=== PATIENT | male | born 1960 | race Caucasian/White ===

== ENCOUNTER 2016-12-24 11:48 | Inpatient (IN) | payer OTHER, BC ==
[~2016-12-24] VITALS: Ht 177.8 cm; Wt 106.2 kg
--- NOTE | ~2016-12-24 | DS ---
ADMIT: 12/24/2016 RM/LOC: 415 [facility] MR#: [id number] [address] [address] SERENA CHAU [address] [place] [address] Discharge Summary SEX: M AGE: 56 : 1960 ADMISSION DATE: 12/24/2016 DISCHARGE DATE: 12/26/2016 REASON FOR ADMISSION: 1. Fall. 2. Right nondisplaced distal radius fracture. 3. Left comminuted distal radius fracture. 4. Diplopia. 5. Right lateral orbital fracture. 6. Right zygoma fracture. 7. Right-sided frontotemporal fracture. 8. Subarachnoid hemorrhage. 9. Traumatic brain injury. CONSULTS: 1. Dr. Kumari with Family Practice. 2. Dr. Morelos with Orthopedics. 3. Dr. Kan with ENT. HOSPITAL COURSE: Mr. Chau is a very pleasant 56-year-old gentleman whom was at work on a ladder working on wiring. He does not remember what happened, but fell off the ladder from about 6 feet up. He awoke in the ER and is amnestic to the events. A CT scan of his head and orbit was obtained and revealed a right-sided frontotemporal fracture with some traumatic subarachnoid hemorrhage. He had some hearing loss on the right and some double vision. A CT of the cervical spine was negative for any acute processes. X-rays of his shoulder and bilateral wrists were obtained and revealed no acute processes of his shoulder and comminuted left distal radial fracture as well as a nondisplaced right distal radius fracture. He was admitted to the med/surg floor for monitoring and care. Dr. Kumari with Family Practice was consulted for co-management of his comorbidities. Dr. Morelos with orthopedics was consulted for his bilateral radial fractures. Dr. Kan was consulted for his facial fracture, diplopia and hearing loss. Speech therapy was consulted for neurocognitive evaluation and treatment with his traumatic brain injury. Hospital day #2, he continued to have some diplopia. His vital signs were stable. He was awake and alert and oriented x4. He was moving all extremities x4. He continued to work with PT, OT and ST. Hospital day #3, he was awake and alert. He was afebrile. His vital signs were stable. He was moving all extremities x4. His right wrist was in a brace and his left arm splint was intact. He did complain of some numbness to his fingers. His left hand was edematous. He reported his double vision was better in the right eye. He did have periorbital edema that was improving to his right eye. The decreased hearing to his right ear remained unchanged. He was ambulating, urinating and defecating per his norm and was requesting discharge home. DISCHARGE CONDITION: Good. DISCHARGE MEDICATIONS: ADMIT: 12/24/2016 RM/LOC: 415 [facility] MR#: [id number] [address] [place] [id number] SERENA CHAU [address] [place] [address] Discharge Summary SEX: M AGE: 56 : 1960 1. Colace 100 mg p.o. b.i.d. 2. Milk of magnesia 10 mL p.o. daily. 3. Senokot one tab p.o. b.i.d. 4. Therapeutic multivitamin daily. 5. Prevacid 30 mg daily. 6. Dulcolax suppository 10 mg rectally p.r.n. 7. Hydrocodone 5/325, 1-2 p.o. q.4-6 hours p.r.n. 8. Maalox 30 mL p.o. q.6 hours p.r.n. 9. Phenergan 12.5 mg p.o. q.6 hours p.r.n. 10.Surfak 240 mg p.o. b.i.d. p.r.n. 11.Tylenol 650 mg p.o. q.4 hours p.r.n. 12.Zyrtec 10 mg p.o. daily p.r.n. DISCHARGE INSTRUCTIONS: (Per Dr. Correa) He can have a regular diet. He should utilize fall precautions. He will call with any questions or concerns including neurological worsening, signs or symptoms of infection, or any other issues. FOLLOWUP: He will follow up with Dr. Correa in clinic in 1 month. He will follow up with ortho in clinic next week. DISPOSITION: He was discharged home. Total [id number] time for the discharge planning and care coordination was 30 minutes. Marlena Santillan APRN / Jonny Correa MD / vdg JOB #: [id number] CC: Pranay Mooney MD, Attending Physician Pranay Mooney MD, Family Physician
[2016-12-27] MEDS ORDERED: ZYRTEC DPS10 MG PO (19:53)
[2016-12-27] MEDS ORDERED: THERAPEUTIC MUL1 TAB PO (19:53)
[2016-12-27] MEDS ORDERED: COLACE-DPS100 MG PO (19:53)
[2016-12-27] MEDS ORDERED: PREVACID30 MG PO (19:54)
[2016-12-27] MEDS ORDERED: NORCO 5-325 TA1 EACH PO (19:54)
[2016-12-27] MEDS ORDERED: DULCOLAX-DPS10 MG PR (19:54)
[2016-12-27] MEDS ORDERED: MILK OF MAGNESI10 ML PO (19:54)
[2016-12-27] MEDS ORDERED: SENOKOT S1 TAB PO (19:54)
[2016-12-27] MEDS ORDERED: MAALOX DPS30 ML PO (19:55)
[2016-12-27] MEDS ORDERED: PHENERGAN DPS25 MG PO (19:55)
[2016-12-27] MEDS ORDERED: TYLENOL DPS325 MG PO (19:55)
--- NOTE | 2016-12-31 09:33 | CO ---
ADMIT: 12/24/2016 RM/LOC: 415 [facility] MR#: [id number] [address] [address] SERENA CHAU [address] [place] [address] Consultation SEX: M AGE: 56 : 1960 DATE OF CONSULTATION: 12/25/2016 ATTENDING PHYSICIAN: Pranay Mooney MD CONSULTING PHYSICIAN: Wesly Kan MD HISTORY OF PRESENT ILLNESS: Mr. Chau is a 56-year-old, sustained an injury when falling from a ladder. I was consulted concerning double vision. CT scanning of the facial bones shows fractures involving the lateral orbit of the right side and the zygoma. There is very mild (1 mm) displacement of a fracture along the lateral orbital wall. There is no displacement of the zygomatic fracture. There is no evidence of hematoma post-septal and no proptosis. There is blood within the sphenoid and posterior ethmoid sinuses, but no other facial or sinus fractures identified. PHYSICAL EXAMINATION: GENERAL: Shows him to be awake, alert, sitting in a chair. EYES: His vision from the right eye is intact. Movement of the right eye is limited, but appears intact. He has double vision on straight ahead gaze. There is periorbital edema and ecchymosis including the lateral, supraorbital, and infraorbital tissues. There was no tension on the globe. IMPRESSION: 1. Fracture of right lateral orbital wall. 2. Fracture of right zygoma, nondisplaced. 3. Diplopia. RECOMMENDATION: The fracture fragments appear in good alignment and at this time, did not require surgical repair. The diplopia is most likely secondary to soft tissue edema surrounding the fracture sites including the lateral rectus muscle region. Recommend may use ice pack to right periorbital region for comfort. We will plan follow-up examination in 10 to 14 days allowing ecchymosis and edema to subside. I anticipate this will allow resolution of diplopia. Wesly Kan MD/ yasmeen JOB #: [id number] CC: Pranay Mooney MD, Attending Physician Pranay Mooney MD, Family Physician
--- NOTE | 2016-12-31 14:12 | CO ---
ADMIT: 12/24/2016 RM/LOC: 415 [facility] MR#: [id number] [address] [address] SERENA CHAU [address] [place] [address] Consultation SEX: M AGE: 56 : 1960 DATE OF CONSULTATION: 12/24/2016 ATTENDING PHYSICIAN: Pranay Mooney MD CONSULTING PHYSICIAN: Min Morelos MD SUBJECTIVE: The patient is a 56-year-old white male who was on a ladder today, fell off a ladder, was seen in the ER. Apparently, he had a skull fracture and concussion. He also had complaints of bilateral wrist pain. PHYSICAL EXAMINATION: Shows the left wrist is well-padded, volar fiberglass splint secured with an Rick wrap. He is able to wiggle his fingers. Neurovascularly, he appears to be intact. Pain over the distal radius. Has no complaints of elbow, arm, or clavicle pain. Right wrist is in a Velcro cock-up wrist splint. Again, the same thing. He is neurovascularly intact. He has good capillary refill and kind of sense no pain over the elbow or humerus, has a little posterior shoulder pain. He can do leg lifts bilaterally, flex and extend his knees and ankles. No pain of the bilateral lower extremities or the pelvis. IMAGING: X-rays of the right wrist show a nondisplaced distal radius fracture. X-rays of the left wrist show a comminuted articular distal radius fracture pre and post reduction. Post reduction x-rays in the splint show the patient has better alignment, but it still has dorsal angulation. X-rays of the right humerus show an old humeral fracture that was status post bone grafting per the patient, this is well healed. No evidence of malignancies. ASSESSMENT AND PLAN: Bilateral wrist fractures. At this point in time, we will keep the patient in a cock-up wrist splint on the right and follow that with serial x-rays to make sure it maintained its good position. As far as his left wrist is concerned, next week when the swelling goes down, we may have to plan open reduction and internal fixation versus closed reduction and pinning. We will have him ice and elevate both wrists at night. As far as his shoulder is concerned, there were no fractures down the line, after his wrists are healed, we may have to look into that with MRI scans if he continues to have any pain. Min Morelos MD/ yasmeen JOB #: [id number] CC: Pranay Mooney MD, Attending Physician Pranay Mooney MD, Family Physician
--- NOTE | 2017-01-20 08:43 | HP ---
ADMIT: 12/24/2016 RM/LOC: 415 [facility] MR#: [id number] [id number] [place], [place] [address] SERENA CHAU [address] [place] [address] History and Physical SEX: M AGE: 56 : 1960 CORRECTED: 12/26/2016 1437 AJF / 01/16/2017 1211 DJS DATE OF SERVICE: REASON FOR ADMIT: This is an ER admit for trauma. HISTORY OF PRESENT ILLNESS: Mr. Chau is a 56-year-old gentleman, who has no memory, antecedent or postcedent to his fall off a ladder until such time as he reached the ER. He does not remember falling or any of the time in-between. He has had a fall a couple of years ago off a ladder similarly at the [facility] in town where he had some fractured vertebrae and underwent kyphoplasty. He has had nausea and vomiting. He does complain of some mild double vision. 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 ALLERGIES: NONE. MEDICATIONS: None routine. SOCIAL HISTORY: He is a nonsmoker. He does not drink or illicit drugs abuse. FAMILY HISTORY: No history of neurological disease. PHYSICAL EXAMINATION: VITAL SIGNS: 141/71, 88 beats, 30 breaths, 97.5 degrees. GENERAL: He is otherwise healthy appearing gentleman with clear trauma to his head. He has diminished hearing in the right ear. He has a contused periorbital region on the right with some swelling. He is unable to fully open his eye, but there does not appear to be pressure on the eye itself. He does have some double vision when looking with both eyes, although, he has intact vision in the right eye when examined alone. He does have some swelling around the temporalis musculature as well on that side. He has normal respiratory excursion, obese abdomen. 2+ radial pulses. NEUROLOGICAL EXAMINATION: MENTAL STATUS: He is awake, alert, oriented x4. He has no dysphonia, dysarthria, or aphasia. His affect is appropriate. Thought content is normal. CRANIAL NERVES: Cranial nerves II through XII are individually tested with the aforementioned functional loss. I do not see cranial nerve palsy is a cause for his double vision nor does he appear to have an entrapment syndrome. Motor exam reveals 5/5 strength in the lower extremities with some limitation due to cast on the wrist on the left and splint on the right. He has normal bulk, normal tone. Deep tendon reflexes are 2/4 in the upper and lower extremities. Sensation is intact to light touch in upper and lower extremity and face. No cerebellar signs, it was difficult to test. Gait not tested. Deep tendon reflexes are 2/4 in upper and lower extremities. ADMIT: 12/24/2016 RM/LOC: 415 [facility] MR#: [id number] [facility] [address] [address] SERENA CHAU [address] [place] [address] History and Physical SEX: M AGE: 56 : 1960 ASSESSMENT AND PLAN: Mr. Byrne is a very pleasant gentleman with a right- sided frontotemporal fracture with some traumatic, very minor subarachnoid hemorrhage on the right. No shift, edema, or mass effect. He may have some hearing loss. He has some double vision. He has multiple orthopedic injuries. I will observe him from a neurosurgical standpoint by Dr. Mooney to evaluate the patient for longitudinal evaluation and follow up. I have discussed the patient with Dr. Kan after discovering the diplopia to have him evaluate the patient also for the hearing loss and what looks like a fracture in the zygomatic arch as well as the orbit. I will plan to follow along with the patient here in the progressive step-down unit. Jonny Correa MD/ yasmeen JOB #: [id number] CC: Pranay Mooney MD, Attending Physician Pranay Mooney MD, Family Physician CORRECTED: 12/26/2016 1437 AJF / 01/16/2017 1211 EFRAIN
--- NOTE | 2017-01-22 19:48 | CO ---
ADMIT: 12/24/2016 RM/LOC: 415 [facility] MR#: [id number] [address] [address] SERENA CHAU [address] [place] [address] Consultation SEX: M AGE: 56 : 1960 CORRECTED: 01/16/2017 1213 DJS ATTENDING PHYSICIAN: Pranay Mooney MD CONSULTING PHYSICIAN: Marcy Kumari MD CHIEF COMPLAINT: Consultation for medical management in a patient with skull fracture. HISTORY OF PRESENT ILLNESS: This is a 56-year-old typically healthy gentleman, who suffered a fall off a 6-foot ladder today. He was with some other coworkers, but in an area were no one actually saw him fall. He was estimated to be about 6 feet off the ground and fell. He was on the ground, brought to the emergency room. In the ER, he was diagnosed with right frontal skull fracture. He also fractured mandible and lateral orbit. He also suffered bilateral forearm fractures. He has a hematoma on his right thigh, bruising on his right shoulder and some soreness in his neck. He complains of double vision. PAST MEDICAL HISTORY: Patient has history of testicular cancer in 2012, treated with a radical right orchiectomy and carboplatin chemotherapy. He also had previous hydrocele repair in 2010. He had a remote tonsillectomy. The patient had kyphoplasty in 2014 for fracture of T12. Interestingly, he fell off a ladder in June of 2015 and that is when he suffered the compression fracture. MEDICATIONS: 1. None, other than occasional [id number] ibuprofen. 2. He also takes multivitamin. 3. Fish oil. REVIEW OF SYSTEMS: CONSTITUTIONAL: He said he had been feeling fine up until this happened. He denies dizziness. Denies chest pain, or any sort of vertigo spells. He had no fever. No recent illness. ENT: Currently complains of double vision. He complains of headache, pain all on the right side of his head and into the right side of his jaw and neck. Prior to this, however, he had no problems with vision. He also complains he cannot hear very well at his right ear. He denies any previous hearing problems. CARDIOPULMONARY: Benign. Denies shortness of breath, dizziness, chest pain, or palpitations. GENITOURINARY: Benign. MUSCULOSKELETAL: Typically benign, but currently of course complains that his hands feel sore and right shoulder hurts. His right thigh hurts. ENDOCRINE: Benign. He has had an orchectomy. He is not on any sort of hormone replacement. 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 He does not smoke. Does not drink alcohol. He is . His of breast cancer about a ADMIT: 12/24/2016 RM/LOC: 415 [facility] MR#: [id number] [address] [place] [address] [address]ERENA CHAU [address] [place] [address] Consultation SEX: M AGE: 56 : 1960 decade ago. FAMILY HISTORY: Father had prostate cancer. Grandfather had lung cancer. PHYSICAL EXAMINATION: GENERAL: The patient is lying in bed, uncomfortable. HEENT: He has marked swelling and ecchymosis over the right eyelid. He is able to actively open his eye on his own. When he is relaxed, however, it is swollen and shut. He has erythema and ecchymosis on the right side of his forehead, right frontal parietal area, and along the right zygoma. He can extend his tongue in the midline. He has dried blood around the nares and on the lips. Shoulder shrug is equal bilaterally. I cannot really determine grain inspector strength because he has both hands in splints. He has normal sensation of the fingers bilaterally. 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 ABDOMEN: Belly is soft. Bowel sounds are normal. HEART: Regular. LUNGS: Sound clear anteriorly. EXTREMITIES: Lower extremities have no edema. LABORATORY AND X-RAY DATA: CT scans are all noted in the computer and main findings are of the nondisplaced right frontal bone fracture with fracture line extending to the right temporal bone and fracture of the right maxilla with comminuted fracture of the posterior wall of the right orbit. The orbit CT revealed nasal bone fracture on the right extending into the inferior wall of the right maxillary sinus and possibly involving the lamina papyracea on the right as well. He has nondisplaced distal radius fracture on the right and he had a displaced distal comminuted fracture on the left and that has been splinted and repeat x-ray showed good alignment. He also had a cervical spine CT showing no fractures. He had a right shoulder x-ray showing no fractures. However, on the right shoulder x-ray has a 3.9 cm cystic lesion in the mid humerus and recommendation was for followup with MRI for that. ASSESSMENT: 1. Multiple fractures secondary to trauma from falling off the ladder. 2. Diplopia. 3. Prior history of testicular cancer. PLAN: He has been admitted by Neurosurgery and Orthopedics was consulted as was ENT. Dr. Morelos saw the patient and kept him in his wrist splints and he will follow as an outpatient. Dr. Kan will see the patient as well. We will follow along with Neurosurgery. The patient has medications ordered for nausea and pain and I will let him eat. We will hold off on any sort of anticoagulation and Dr. Correa already noted that because of possible ADMIT: 12/24/2016 RM/LOC: 415 [facility] MR#: [id number] [address] [address] SREENA CHAU [address] [place] [address] Consultation SEX: M AGE: 56 : 1960 procedure and possibility of hemorrhage. He does have small subdural blood noted on his scans. The patient had a fall from a ladder in 2014, suffering a compression fracture and now, he has had another fall from a ladder. I will put him on telemetry here in the hospital. It is most likely that he has had bad luck episodes, but I want to monitor on telemetry and if he has any persistent troubles with balance, then need to consider possibly outpatient telemetry monitoring. He is going to have a fairly long recovery needing to be off work and we will need to help him manage disability and recovery process as well. Marcy Kumari MD/ yasmeen JOB #: [id number] CC: Pranay Mooney MD, Attending Physician Pranay Mooney MD, Family Physician CORRECTED: 01/16/2017 1213 DJS
--- NOTE | 2017-01-30 18:52 | ER ---
ADMIT: 12/24/2016 RM/LOC: 415 [facility] MR#: [id number] [address] [address] SERENA CHAU [address] [place] [address] Emergency Room Report SEX: M AGE: 56 : 1960 DATE: 12/24/2016 ADDENDUM: This is a 56-year-old male coming to the ER because he fell 6 feet off a ladder. He has pain in his right shoulder, his left wrist, his head, and his face. On physical exam, the patient is in C-collar, but he is confused. He has a large hematoma over his right eye and a bloody nose. He has what looks to be fractured front teeth, but could have been chipped previously. He is disoriented to person, place, and time and continues to ask several questions over and over again. He has an obvious deformed left wrist. CT scan showed an epidural bleed and also fracture of the right frontal bone and fracture of the right maxilla. X-ray showed fracture of the right wrist, which was nondisplaced distal radius fracture. An x-ray of the left wrist showed a comminuted articular distal radius fracture. DIAGNOSES: 1. Epidural bleed. 2. Fracture of the right frontal bone. 3. Fracture of the right maxilla. 4. Fracture of the right radius. 5. Fracture of the left radius. 6. Concussion. To the displaced fracture, I did a hematoma block using Marcaine with epinephrine. The patient was placed in the finger traps where I was able to reduce the fracture, and he was placed in a reverse sugar-tong OCL splint. The nondisplaced fracture was placed in a thumb-spica splint. He was given Zofran and morphine in the emergency room. C-spine was negative. Please see Dr. Kumari, Dr. Morelos, and Dr. Correa's dictation for further treatment, and I did consult with the ER doctor concerning treatment of this patient. JOSE Andrews / Jamil Aviles MD / yasmeen JOB #: [id number] CC: Pranay Mooney MD, Attending Physician Pranay Mooney MD, Family Physician
== END 2016-12-26 16:35 | disposition home or self-care (01) | DRG 86 ==
LOC: ER 11:48 → 4PCU 13:55
PROVIDERS: ADMIT Family Medicine
PROC: 0PSJXZZ Reposition Left Radius, External Approach (ICD-10-PCS; principal; 2016-12-24)
DX: S02.0XXA Fracture of vault of skull, initial encounter for closed fracture (principal); S52.502A Unspecified fracture of the lower end of left radius, initial encounter for closed fracture; S06.6X0A Traumatic subarachnoid hemorrhage without loss of consciousness, initial encounter; S52.501A Unspecified fracture of the lower end of right radius, initial encounter for closed fracture; S06.5X0A Traumatic subdural hemorrhage without loss of consciousness, initial encounter; S02.19XA Other fracture of base of skull, initial encounter for closed fracture; S02.40EA Zygomatic fracture, right side, initial encounter for closed fracture; W11.XXXA Fall on and from ladder, initial encounter; H53.2 Diplopia; Z85.47 Personal history of malignant neoplasm of testis

== ENCOUNTER → 2016-12-30 | Outpatient (CLI) | payer OTHER, BC ==
[~2016-12-30] MED LIST: COLACE-DPS100 MG PO; DULCOLAX-DPS10 MG PR; MAALOX DPS30 ML PO; MILK OF MAGNESI10 ML PO; NORCO 5-325 TA1 EACH PO; PHENERGAN DPS25 MG PO; PREVACID30 MG PO; SENOKOT S1 TAB PO; THERAPEUTIC MUL1 TAB PO; TYLENOL DPS325 MG PO; ZYRTEC DPS10 MG PO
== END | disposition home or self-care (01) ==
LOC: RAD.S 13:39
DX: R22.31 Localized swelling, mass and lump, right upper limb (principal); M75.81 Other shoulder lesions, right shoulder